=== PATIENT | male | born 1980 | race Caucasian/White ===

== ENCOUNTER → 2019-11-24 | Outpatient (CLI) | payer BC | LOC: ZCOL.LAB 18:33 | DX: Z20.828 Contact with and (suspected) exposure to other viral communicable diseases (principal) ==

== ENCOUNTER → 2020-10-08 | Outpatient (CLI) | payer BC ==
[2020-10-08 13:36] LABS: BASO % 0.6 % (0.0-2.0); EOS # 0.1 (0.0-0.7); GRAN # 3.6 (1.4-6.5); GRAN % 56.4 % (42.2-75.2); HEMATOCRIT 43.6 % (42.0-52.0); HEMOGLOBIN 14.6 g/dl (13.5-18.0); LYMPH # 2.1 (1.2-3.4); LYMPH % 32.7 % (20.0-51.0); MEAN CELL VOLUME 86 fl (80.0-100.0); MEAN CORPUSCULAR HEMOGLOBIN 29 pg (27.0-31.0); MEAN CORPUSCULAR HGB CONC 34 g/dl (33.0-37.0); MEAN PLATELET VOLUME 9.2 fl (7.4-10.4); MONO # 0.5 (0.1-0.6); MONO % 8.1 % (1.7-9.3); PLATELET COUNT 326 K/mm3 (130-400); RED BLOOD COUNT 5.05 M/mm3 (4.20-5.60); REDCELL DISTRIBUTION WIDTH-CV 12.8 % (11.5-14.5)
[2020-10-08 13:45] LABS: ALANINE AMINOTRANSFERASE 23 U/L (4-49); ALBUMIN 4.3 gm/dL (3.5-5.0); ALKALINE PHOSPHATASE 57 U/L (50-136); ANION GAP 7 mmol/L (7-16); AST,SGOT 26 U/L (15-37); BILIRUBIN,TOTAL 0.2 mg/dL (0.0-1.0); BLOOD UREA NITROGEN 13 mg/dL (9-20); CALCIUM 9.4 mg/dL (8.4-10.2); CARBON DIOXIDE 28 mmol/L (22-30); CHLORIDE 104 mmol/L (98-107); GLUCOSE 94 mg/dL (74-106); POTASSIUM 4.2 mmol/L (3.4-5.0); SODIUM 139 mmol/L (137-145); TOTAL PROTEIN 7.9 gm/dL (6.4-8.2)
[2020-10-08 13:54] LABS: C-REACTIVE PROTEIN 0.9 mg/dL (0.0-0.9)
[2020-10-08 14:02] LABS: TROPONIN-I < 0.012 ng/mL (0.000-0.035)
== END ==
LOC: COL.LAB 12:47
PROVIDERS: Family Medicine
DX: R42 Dizziness and giddiness (principal)

== ENCOUNTER 2023-02-19 20:15 | Emergency (ER) | payer BC ==
[~2023-02-19] VITALS: Ht 175.3 cm; Wt 97.7 kg
[2023-02-19 20:17] VITALS: TEMP 97.9
[2023-02-19 20:41] LABS: BASO # 0.1 K/mm3 (0.0-0.2); BASO % 0.6 % (0.0-2.0); EOS # 0.1 K/mm3 (0.0-0.7); EOS % 1.1 % (0.0-4.0); GRAN # 4.4 K/mm3 (1.4-6.5); HEMATOCRIT 45.1 % (42.0-52.0); HEMOGLOBIN 15.3 g/dl (13.5-18.0); LYMPH # 4.3 K/mm3 (1.2-3.4); LYMPH % 43.6 % (20.0-51.0); MEAN CELL VOLUME 87 fl (80.0-100.0); MEAN CORPUSCULAR HEMOGLOBIN 29 pg (27-31); MEAN CORPUSCULAR HGB CONC 34 g/dl (33.0-37.0); MEAN PLATELET VOLUME 9.5 fl (7.4-10.4); MONO % 10.1 % (1.7-9.3); PLATELET COUNT 292 K/mm3 (130-400); RED BLOOD COUNT 5.21 M/mm3 (4.20-5.60); REDCELL DISTRIBUTION WIDTH-CV 12.7 % (11.5-14.5)
[2023-02-19 20:57] LABS: ALBUMIN 4.1 gm/dL (3.5-5.0); BILIRUBIN,TOTAL 0.5 mg/dL (0.2-1.2); CALCIUM 9.8 mg/dL (8.4-10.2); CREATININE, serum 1.12 mg/dL (0.72-1.25); POTASSIUM 3.9 mmol/L (3.5-4.5); TOTAL PROTEIN 7.5 gm/dL (6.2-8.1)
[2023-02-19 21:18] LABS: PROLACTIN 58.8 ng/mL (3.46-19.40); TSH w REFLEX 3.023 uIU/mL (0.350-4.940)
[2023-02-19] MEDS ORDERED: KEPPRA 500MG500 MG PO (22:00)
[2023-02-19 22:44] VITALS: BP 107/79; PULSE 90
== END 2023-02-19 22:54 | disposition home or self-care (01) ==
LOC: COL.ER 20:15
PROVIDERS: Emergency Medicine
DX: G40.909 Epilepsy, unspecified, not intractable, without status epilepticus (principal); R00.0 Tachycardia, unspecified; E22.1 Hyperprolactinemia
CPT/HCPCS: J1953; J7120

== ENCOUNTER → 2023-03-06 | Outpatient (CLI) | payer BC ==
[~2023-03-06] MED LIST: KEPPRA 500MG500 MG PO
== END ==
LOC: COL.RAD 09:07
DX: G40.309 Generalized idiopathic epilepsy and epileptic syndromes, not intractable, without status epilepticus (principal)